=== PATIENT | female | born 1965 | race Caucasian/White ===

== ENCOUNTER 2016-08-09 20:25 | Emergency (ER) | payer BC ==
[2016-08-10 00:19] VITALS: BP 139/78
== END 2016-08-10 00:19 | disposition home or self-care (01) ==
LOC: ED 20:25
DX: R51 Headache (principal); M62.830 Muscle spasm of back; R03.0 Elevated blood-pressure reading, without diagnosis of hypertension; R11.2 Nausea with vomiting, unspecified; R10.9 Unspecified abdominal pain; H53.149 Visual discomfort, unspecified
CPT/HCPCS: 20552; J2001

== ENCOUNTER 2018-10-05 19:41 | Emergency (ER) | payer BC ==
[~2018-10-05] VITALS: Ht 165.1 cm; Wt 72.6 kg
[2018-10-05 19:47] VITALS: Ht 165.1 cm; Wt 72.6 kg
[2018-10-05 20:40] LABS: BASOPHIL % 0.6 % (0-2); PLATELET COUNT 258 x10^3mcL (130-400); RED CELL DISTRIBUTION WIDTH 12.6 % (11.5-14.5)
[2018-10-05 20:53] LABS: ALBUMIN 3.8 g/dL (3.4-5.0); ALKALINE PHOSPHATASE 77 U/L (46-116); ALT/SGPT 21 U/L (14-59); AST/SGOT 13 U/L (15-37); BILIRUBIN TOTAL 0.33 mg/dL (0.20-1.00); CALCIUM 9.8 mg/dL (8.5-10.1); CARBON DIOXIDE 24.3 mmol/L (21-32); CHLORIDE SERUM 105 mmol/L (98-107); CREATININE SERUM 0.7 mg/dL (0.6-1.0); GFR1 > 60 mL/min; GLUCOSE SERUM 160 mg/dL (74-106); LIPASE 208 IU/L (73-393); POTASSIUM SERUM 3.7 mmol/L (3.5-5.1); SODIUM SERUM 141 mmol/L (136-145); TOTAL PROTEIN, SERUM 7.9 g/dL (6.4-8.2)
[2018-10-06 00:03] VITALS: BP 133/76
== END 2018-10-06 00:03 | disposition home or self-care (01) ==
LOC: ED 19:41
PROVIDERS: Emergency Medicine
DX: R42 Dizziness and giddiness (principal); R11.0 Nausea
CPT/HCPCS: J2405; J7030; J8597